=== PATIENT | female | born 1980 | race American Indian/Alaskan Native ===

== ENCOUNTER 2021-07-14 13:02 | Emergency (ER) | payer MEDICAID ==
--- NOTE | 2021-07-14 13:51 | Emergency Department Report ---
ED Dizziness HPI - General Chief Complaint: Dizziness Stated Complaint: DIZZY 11WKS PREG Time Seen by Provider: 07/14/21 13:37 Source: patient Mode of arrival: Ambulatory Limitations: No Limitations - History of Present Illness Initial Comments: 41-year-old female, history of hypertension, currently 11 weeks , presents to ED with dizziness x4 days. Patient states when she stands for too long she feels lightheaded as if she is going to pass out. Patient reports history of hypertension. States she was taking lisinopril, however when she fou nd out that she was she stopped taking her lisinopril. Patient states this was a few weeks ago. She states when she was previously she was taking labetalol. Patient reports associated a mild headache and palpitations. She denies any chest pain, shortness of breath, leg pain or swelling. Patient reports cough, however denies fever. Patient states she received her Pfizer vaccine in December 2020. Patient denies any abdominal pain, vomiting, or vaginal bleeding. MD Complaint: dizziness -: days(s) (4) Timing: intermittent Description: lightheadedness Worsens With: other (Standing for prolonged amount of time) Associated Symptoms: cough. denies: chest pain, confusion, fever/chills, shortness of breath, syncope - Related Data Previous Rx's Medication Instructions Recorded Last Taken Type cephALEXin [Keflex] 500 mg PO Q12HR 5 Days #10 cap 07/14/21 Unknown Rx labetaloL [Labetalol 200mg TAB] 200 mg PO BID 30 Days #60 tablet 07/14/21 Unknown Rx Allergies Allergy/AdvReac Type Severity Reaction Status Date / Time No Known Allergies Allergy Verified 07/14/21 13:37 ED Review of Systems ROS: Stated complaint: DIZZY 11WKS PREG Other details as noted in HPI Comment: All other systems reviewed and negative Constitutional: denies: chills, fever Respiratory: cough. denies: shortness of breath Cardiovascular: palpitations. denies: chest pain Gastrointestinal: denies: abdominal pain, nausea, vomiting Genitourinary: other (Denies vaginal bleeding) Neurological: headache ED Past Medical Hx - Past Medical History Previous Medical History?: Yes Hx Hypertension: Yes - Medications Home Medications: Home Medications Medication Instructions Recorded Confirmed Last Taken Type cephALEXin [Keflex] 500 mg PO Q12HR 5 Days #10 cap 07/14/21 Unknown Rx labetaloL [Labetalol 200mg TAB] 200 mg PO BID 30 Days #60 tablet 07/14/21 Unknown Rx ED Physical Exam - General Limitations: No Limitations General appearance: alert, in no apparent distress - Head Head exam: Present: atraumatic, normocephalic - Eye Eye exam: Present: normal appearance, PERRL, EOMI - ENT ENT exam: Present: mucous membranes moist - Neck Neck exam: Present: normal inspection - Respiratory Respiratory exam: Present: normal lung sounds bilaterally. Absent: respiratory distress - Cardiovascular Cardiovascular Exam: Present: regular rate, normal rhythm - GI/Abdominal GI/Abdominal exam: Present: soft. Absent: distended, tenderness - Extremities Exam Extremities exam: Present: normal inspection. Absent: pedal edema, calf tenderness - Neurological Exam Neurological exam: Present: alert, oriented X3, CN II-XII intact. Absent: motor sensory deficit - Psychiatric Psychiatric exam: Present: normal affect, normal mood - Skin Skin exam: Present: warm, dry, intact, normal color ED Course Vital Signs 07/14/21 07/14/21 07/14/21 13:36 16:07 16:08 Temperature 99.8 F H 97.9 F Pulse Rate 87 73 Respiratory 16 14 Rate Blood Pressure 201/123 153/88 [Right] O2 Sat by Pulse 100 99 99 Oximetry ED Medical Decision Making - Lab Data Result diagrams: 07/14/21 13:54 07/14/21 13:54 - EKG Data -: EKG Interpreted by La EKG shows normal: sinus rhythm, axis, intervals, QRS complexes, ST-T waves Rate: normal - EKG Data Interpretation: no acute changes - Radiology Data Radiology results: report reviewed, image reviewed - Medical Decision Making Labetalol given, blood pressure improved. Patient reports she is feeling much better. She will be given a prescription for labetalol. Ultrasound not ordered as patient is not having any vaginal bleeding or abdominal pain. She can follow-up with [facility] for her . Labs unremarkable except for possible UTI on UA. Patient will be given prescription for this. Critical care attestation.: If time is entered above; I have spent that time in minutes in the direct care of this critically ill patient, excluding procedure time. ED Disposition Clinical Impression: Uncontrolled hypertension, Dizziness, First trimester , UTI (urinary tract infection) Disposition: HOME / SELF CARE / HOMELESS Is pt being admited?: No Condition: Stable Instructions: and Urinary Tract Infection, Hypertension During , Hypertension (ED) Prescriptions: cephALEXin [Keflex] 500 mg PO Q12HR 5 Days #10 cap labetaloL [Labetalol 200mg TAB] 200 mg PO BID 30 Days #60 tablet Referrals: PRIMARY CAREMD [Primary Care Provider] - 3-5 Days JAMI MCCARTHY JR, MD [Staff Physician] - 3-5 Days Time of Disposition: 16:44
--- NOTE | 2021-07-14 14:15 | XRay Report ---
CHEST 2 VIEWS INDICATION: cough. COMPARISON: None. FINDINGS: Support devices: None. Heart: Within normal limits. Lungs/Pleura: No acute air space or interstitial disease. No significant pleural effusion. IMPRESSION: No acute findings. Signer Name: Jean Chávez MD Signed: 07/14/2021 2:11 PM Workstation Name: [id number]
[2021-07-14 14:20] LABS: Basophils % (Auto) 0.4 % (0.0-1.8); Eosinophils # (Auto) 0.1 K/mm3 (0.0-0.4); Eosinophils % (Auto) 1.7 % (0.0-4.3); Hematocrit 39.6 % (30.3-42.9); Hemoglobin 13.7 gm/dl (10.1-14.3); Lymphocytes # (Auto) 1.9 K/mm3 (1.2-5.4); Lymphocytes % (Auto) 27.2 % (13.4-35.0); Mean Corpuscular HGB Conc 35 % (30-34); Mean Corpuscular Volume 86 fl (79-97); Monocytes # (Auto) 0.7 K/mm3 (0.0-0.8); Monocytes % (Auto) 9.5 % (0.0-7.3); Platelet Count 303 K/mm3 (140-440); Red Blood Count 4.62 M/mm3 (3.65-5.03); Red Cell Distribution Width 15.8 % (13.2-15.2)
[2021-07-14 14:35] LABS: Blood Urea Nitrogen 8 mg/dL (7-17); Calcium 8.7 mg/dL (8.4-10.2); Hemolysis Index 5
[2021-07-14 14:38] LABS: BUN/Creatinine Ratio 11
[2021-07-14 16:08] VITALS: BP 153/88
--- NOTE | 2021-07-14 16:08 | Cat Scan Report ---
CT head/brain wo con INDICATION: dizziness, headache. TECHNIQUE: All CT scans at this location are performed using CT dose reduction for ALARA by means of automated e xposure control. COMPARISON: None available. FINDINGS: There is no evidence of hemorrhage, hydrocephalus, brain edema, or mass effect/mass lesion. There is overall normal brain formation and brain volume for the patient's age. Ventricular and cisternal/sulc al size is normal for age. The included paranasal sinuses and mastoid air cells are clear. The orbits appear unremarkable. IMPRESSION: 1. No acute intracranial abnormality. Signer Name: Bob Howell MD Signed: 07/14/2021 4:04 PM Workstation Name: [id number]
[2021-07-14 16:19] LABS: Bacteria,Urine 1+ /HPF (Negative); Bilirubin,Urine NEG (Negative); Blood,Urine NEG (Negative); Color,Urine Yellow (Yellow); Mucus,Urine FEW /HPF; Protein,Urine <15 mg/dL mg/dL (Negative); Urobilinogen,Urine < 2.0 mg/dL (<2.0)
--- NOTE | 2021-07-15 10:36 | Electrocardiograph Report ---
[facility] Test Date: 2021-07-14 Test Time: 14:40:08 Pat Name: JANUARY FAIR HAVEN Department: Room: Gender: F Customer Services Coordinator: LAYLA : 1980 Requested By: SHANA BUTTS Order Number: [id number] Reading MD: Micah Duff Measurements Intervals [place] Rate: 80 P: 68 RI: 141 QRS: 62 QRSD: 84 T: 35 QT: 369 QTc: 424 Interpretive Statements Sinus rhythm Probable left atrial enlargement ST elev, probable normal early repol pattern No previous ECG available for comparison Electronically Signed On 07-15-2021 10:35:56 EDT by Micah Duff
== END 2021-07-14 17:01 | disposition home or self-care (01) ==
LOC: ED 13:02
DX: O26.891 Other specified pregnancy related conditions, first trimester (principal); I10 Essential (primary) hypertension; O23.41 Unspecified infection of urinary tract in pregnancy, first trimester; Z3A.11 11 weeks gestation of pregnancy; Z79.899 Other long term (current) drug therapy
CPT/HCPCS: 36415; 70450; 71046; 80048; 81001; 84702; 85025; 87086; 93005; 96374; 99284

== ENCOUNTER 2021-07-24 10:43 | Emergency (ER) | payer OTHER ==
[2021-07-24 10:51] VITALS: BP 149/86
--- NOTE | 2021-07-24 11:05 | Emergency Department Report ---
ED Female HPI - General Chief complaint: Vaginal Bleeding Stated complaint: 12WKS CRAMPING BLEEDING Time Seen by Provider: 07/24/21 10:55 Source: patient Mode of arrival: Ambulatory Limitations: No Limitations - History of Present Illness Initial comments: Complaint: "I am nervous. I am ." HPI: Is a 41-year-old female with history of hypertension G4, P3 who is approximately 12 weeks 4 days . Estimated due date February 01, 2022. Patient had first care appointment at clinic. She recently established health insurance. She is looking for an diesel mechanic farm. Today she started cramping with vaginal spotting with wiping. Intermittent mild pelvic cramps. 4 out of 10 in severity. No radiation. During her recent care clinic her antihypertensive medication was changed from lisinopril to labetalol. Complaint: vaginal bleeding, pelvic pain -: Gradual, This morning Severity: mild Severity scale (0 -10): 4 Quality: cramping Consistency: intermittent Improves with: none Worsens with: none Are you Now?: Yes Associated Symptoms: vaginal bleeding - Related Data Previous Rx's Medication Instructions Recorded Last Taken Type cephALEXin [Keflex] 500 mg PO Q12HR 5 Days #10 cap 07/14/21 Unknown Rx labetaloL [Labetalol 200mg TAB] 200 mg PO BID 30 Days #60 tablet 07/14/21 Unknown Rx Allergies Allergy/AdvReac Type Severity Reaction Status Date / Time No Known Allergies Allergy Verified 07/24/21 10:45 ED Review of Systems ROS: Stated complaint: 12WKS CRAMPING BLEEDING Other details as noted in HPI Comment: All other systems reviewed and negative Constitutional: diaphoresis. denies: chills, fever, malaise Respiratory: denies: cough, shortness of breath Cardiovascular: denies: chest pain Gastrointestinal: abdominal pain ED Past Medical Hx - Past Medical History Previous Medical History?: Yes Hx Hypertension: Yes - Surgical History Past Surgical History?: Yes Additional Surgical History: - Social History Smoking Status: Never Smoker Substance Use Type: None - Medications Home Medications: Home Medications Medication Instructions Recorded Confirmed Last Taken Type cephALEXin [Keflex] 500 mg PO Q12HR 5 Days #10 cap 07/14/21 Unknown Rx labetaloL [Labetalol 200mg TAB] 200 mg PO BID 30 Days #60 tablet 07/14/21 Unknown Rx ED Physical Exam - General Limitations: No Limitations General appearance: alert, in no apparent distress - Head Head exam: Present: atraumatic, normocephalic - Eye Eye exam: Present: normal appearance - ENT ENT exam: Present: mucous membranes moist - Neck Neck exam: Present: normal inspection, full ROM - Respiratory Respiratory exam: Present: normal lung sounds bilaterally. Absent: respiratory distress, wheezes, rales, rhonchi - Cardiovascular Cardiovascular Exam: Present: regular rate, normal rhythm, normal heart sounds. Absent: systolic murmur, diastolic murmur, rubs, gallop - GI/Abdominal GI/Abdominal exam: Present: soft, normal bowel sounds. Absent: distended, tenderness, guarding, rebound - Extremities Exam Extremities exam: Present: normal inspection - Neurological Exam Neurological exam: Present: alert, oriented X3 - Psychiatric Psychiatric exam: Present: normal affect, normal mood - Skin Skin exam: Present: warm, dry, intact, normal color. Absent: rash ED Course Vital Signs 07/24/21 10:49 Temperature 98.6 F Pulse Rate 103 H Respiratory 20 Rate Blood Pressure 149/86 O2 Sat by Pulse 99 Oximetry ED Medical Decision Making - Lab Data Result diagrams: 07/24/21 11:04 07/24/21 11:04 - Radiology Data Radiology results: report reviewed Patient Name: VOLODYMYR BOLTON Gender: Female Date of : 1980 Referring Provider: MARSHA EDGE Organization: [facility] Accession Number: [id number] Requested Date: July 24, 2021 11:00 Report Status: Final Requested Procedure: 1 Procedure Description: US OB <= 14 weeks fetus Modality: US Findings Reporting MD: Skinny oBo Dictation Time: July 24, 2021 12:27 Chain Maker Machine: Not available Home Economist Consumer Service Date: ULTRASOUND OBSTETRIC INDICATION / CLINICAL INFORMATION: pelvic pain vaginal bleeding. Clinical Gestational Age (GA) in weeks, days: 12, 3 TECHNIQUE: Transabdominal and Transvaginal. COMPARISON: None available. FINDINGS: GESTATIONAL SAC: Well-defined oval shape and intrauterine in location. YOLK SAC: Not seen EMBRYO/FETUS: No significant abnormality. - [place]-Rump Length = 4.7 cm = 11, 3 weeks, days - Heart Rate, beats per minute (if present) = 180 There is a small amount of complex fluid in the lower uterine segment and cervix. ADNEXA: There is a 1.9 cm complex cyst in the left ovary FREE FLUID: None. ADDITIONAL FINDINGS: None. IMPRESSION: 1. Single, living intrauterine with estimated sonographic age of 11, 3 weeks, days. 2. There is a small amount of complex fluid in the lower - Medical Decision Making Threatened miscarriage: Blood type O+. Referred to diesel mechanic farm on-call. Patient given pelvic rest instruction. Mrs. Bolton was quite nervous and anxious. She is concerned for miscarriage since she is considered high risk. I gave verbal reassurance. I encouraged her to focus on her health. Critical care attestation.: If time is entered above; I have spent that time in minutes in the direct care of this critically ill patient, excluding procedure time. ED Disposition Clinical Impression: Threatened miscarriage Disposition: 01 HOME / SELF CARE / HOMELESS Is pt being admited?: No Does the pt Need Aspirin: No Condition: Stable Instructions: Threatened Miscarriage Referrals: CHRISTIANO MITCHELL MD [Staff Physician] - 3-5 Days
[2021-07-24 11:36] LABS: Blood Urea Nitrogen 7 mg/dL (7-17); Calcium 8.7 mg/dL (8.4-10.2); Hemolysis Index 5
[2021-07-24 11:44] LABS: Basophils # (Auto) 0.1 K/mm3 (0.0-0.1); Basophils % (Auto) 0.8 % (0.0-1.8); Eosinophils # (Auto) 0.1 K/mm3 (0.0-0.4); Eosinophils % (Auto) 1.5 % (0.0-4.3); Hematocrit 37.4 % (30.3-42.9); Lymphocytes # (Auto) 1.5 K/mm3 (1.2-5.4); Lymphocytes % (Auto) 18.5 % (13.4-35.0); Mean Corpuscular HGB Conc 32 % (30-34); Mean Corpuscular Volume 86 fl (79-97); Monocytes # (Auto) 0.4 K/mm3 (0.0-0.8); Monocytes % (Auto) 5.2 % (0.0-7.3); Platelet Count 346 K/mm3 (140-440); Red Blood Count 4.36 M/mm3 (3.65-5.03); Red Cell Distribution Width 15.9 % (13.2-15.2)
[2021-07-24 12:00] LABS: BUN/Creatinine Ratio 10
--- NOTE | 2021-07-24 13:32 | Ultrasound Report ---
ULTRASOUND OBSTETRIC INDICATION / CLINICAL INFORMATION: pelvic pain vaginal bleeding. Clinical Gestational Age (GA) in weeks, days: 12, 3 TECHNIQUE: Transabdominal and Transvaginal. COMPARISON: None available. FINDINGS: GESTATIONAL SAC: Well-defined oval shape and intrauterine in location. YOLK SAC: Not seen EMBRYO/FETUS: No significant abnormality. - [place]-Rump Length = 4.7 cm = 11, 3 weeks, days - Heart Rate, beats per minute (if present) = 180 There is a small amount of complex fluid in the lower uterine segment and cervix. ADNEXA: There is a 1.9 cm complex cyst in the left ovary FREE FLUID: None. ADDITIONAL FINDINGS: None. IMPRESSION: 1. Single, living intrauterine with estimated sonographic age of 11, 3 weeks, days. 2. There is a small amount of complex fluid in the lower uterine segment and cervix. Signer Name: Skinny Boo MD Signed: 07/24/2021 1:27 PM Workstation Name: [id number]
--- NOTE | 2021-07-24 13:32 | Ultrasound Report ---
ULTRASOUND OBSTETRIC INDICATION / CLINICAL INFORMATION: pelvic pain vaginal bleeding. Clinical Gestational Age (GA) in weeks, days: 12, 3 TECHNIQUE: Transabdominal and Transvaginal. COMPARISON: None available. FINDINGS: GESTATIONAL SAC: Well-defined oval shape and intrauterine in location. YOLK SAC: Not seen EMBRYO/FETUS: No significant abnormality. - [place]-Rump Length = 4.7 cm = 11, 3 weeks, days - Heart Rate, beats per minute (if present) = 180 There is a small amount of complex fluid in the lower uterine segment and cervix. ADNEXA: There is a 1.9 cm complex cyst in the left ovary FREE FLUID: None. ADDITIONAL FINDINGS: None. IMPRESSION: 1. Single, living intrauterine with estimated sonographic age of 11, 3 weeks, days. 2. There is a small amount of complex fluid in the lower uterine segment and cervix. Signer Name: Skinny Boo MD Signed: 07/24/2021 1:27 PM Workstation Name: [id number]
== END 2021-07-24 14:29 | disposition home or self-care (01) ==
LOC: ED 10:43
DX: O20.0 Threatened abortion (principal); Z3A.12 12 weeks gestation of pregnancy; I10 Essential (primary) hypertension; Z98.890 Other specified postprocedural states
CPT/HCPCS: 36415; 76801; 76817; 80048; 84702; 85025; 86900; 86901; 99283

== ENCOUNTER 2021-08-04 09:19 | Emergency (ER) | payer MEDICAID ==
[2021-08-04] MEDS ORDERED: ACETAMINOPHEN 325 MG TAB PO ONE (11:25)
--- NOTE | 2021-08-04 11:47 | Emergency Department Report ---
ED HPI - General Chief complaint: Vaginal Bleeding Stated complaint: 12WKS/VAGINAL BLEEDING Time Seen by Provider: 08/04/21 11:20 Source: patient Mode of arrival: Ambulatory Limitations: No Limitations - History of Present Illness Initial comments: Patient is a 41-year-old female presents emergency room complaints of suprapubic cramping over the last couple days. she states that she has been having vaginal spotting but this morning and she had an episode when she went to urinate where she had some heavier bleeding. She states that the bleeding has improved. she is not having to wear a menstrual pad. She denies passing any clots. Patient is approximately 12 weeks . She has not followed up with [facility]. She denies any fever, vomiting, diarrhea, dysuria, abnormal discharge. Past medical history of hypertension. No allergies to medications. - Related Data Previous Rx's Medication Instructions Recorded Last Taken Type cephALEXin [Keflex] 500 mg PO Q12HR 5 Days #10 cap 07/14/21 Unknown Rx labetaloL [Labetalol 200mg TAB] 200 mg PO BID 30 Days #60 tablet 07/14/21 Unkn own Rx Allergies Allergy/AdvReac Type Severity Reaction Status Date / Time No Known Allergies Allergy Verified 07/24/21 10:45 ED Review of Systems ROS: Stated complaint: 12WKS/VAGINAL BLEEDING Other details as noted in HPI Comment: All other systems reviewed and negative ED Past Medical Hx - Past Medical History Hx Hypertension: Yes - Surgical History Additional Surgical History: - Social History Smoking Status: Never Smoker Substance Use Type: None - Medications Home Medications: Home Medications Medication Instructions Recorded Confirmed Last Taken Type cephALEXin [Keflex] 500 mg PO Q12HR 5 Days #10 cap 07/14/21 Unknown Rx labetaloL [Labetalol 200mg TAB] 200 mg PO BID 30 Days #60 tablet 07/14/21 Unknown Rx ED Physical Exam - General Limitations: No Limitations General appearance: alert, in no apparent distress - Head Head exam: Present: atraumatic, normocephalic - Eye Eye exam: Present: normal appearance - ENT ENT exam: Present: mucous membranes moist - Respiratory Respiratory exam: Present: normal lung sounds bilaterally. Absent: respiratory distress, wheezes, rales, rhonchi, stridor, chest wall tenderness, accessory muscle use, decreased breath sounds, prolonged expiratory - Cardiovascular Cardiovascular Exam: Present: regular rate, normal rhythm, normal heart sounds. Absent: systolic murmur, diastolic murmur, rubs, gallop - GI/Abdominal GI/Abdominal exam: Present: soft, normal bowel sounds. Absent: distended, tenderness, guarding, rebound, rigid - Neurological Exam Neurological exam: Present: alert, oriented X3 - Psychiatric Psychiatric exam: Present: normal affect, normal mood - Skin Skin exam: Present: warm, dry, intact ED Course Vital Signs 08/04/21 08/04/21 08/04/21 11:17 13:07 14:45 Temperature 99.4 F Pulse Rate 86 83 Respiratory 18 16 18 Rate Blood Pressure 162/97 Blood Pressure 156/84 [Right] O2 Sat by Pulse 99 100 Oximetry ED Medical Decision Making - Lab Data Result diagrams: 08/04/21 11:38 08/04/21 11:38 Lab Results 08/04/21 08/04/21 08/04/21 Range/Units 11:38 11:38 11:38 WBC 8.9 (4.5-11.0) K/mm3 RBC 4.48 (3.65-5.03) M/mm3 Hgb 12.8 (10.1-14.3) gm/dl Hct 38.5 (30.3-42.9) % MCV 86 (79-97) fl MCH 29 (28-32) pg MCHC 33 (30-34) % RDW 15.7 H (13.2-15.2) % Plt Count 329 (140-440) K/mm3 Lymph % (Auto) 22.5 (13.4-35.0) % [place] % (Auto) 10.2 H (0.0-7.3) % Eos % (Auto) 2.8 (0.0-4.3) % Baso % (Auto) 0.7 (0.0-1.8) % Lymph # (Auto) 2.0 (1.2-5.4) K/mm3 [place] # (Auto) 0.9 H (0.0-0.8) K/mm3 Eos # (Auto) 0.2 (0.0-0.4) K/mm3 Baso # (Auto) 0.1 (0.0-0.1) K/mm3 Seg Neutrophils % 63.8 (40.0-70.0) % Seg Neutrophils # 5.7 (1.8-7.7) K/mm3 Sodium 137 (137-145) mmol/L Potassium 4.1 (3.6-5.0) mmol/L Chloride 103.6 (98-107) mmol/L Carbon Dioxide 24 (22-30) mmol/L Anion Gap 14 mmol/L BUN 8 (7-17) mg/dL Creatinine 0.6 (0.6-1.2) mg/dL Estimated GFR > 60 ml/min BUN/Creatinine Ratio 13 % Glucose 70 (65-100) mg/dL Calcium 8.9 (8.4-10.2) mg/dL Total Bilirubin 0.20 (0.1-1.2) mg/dL AST 20 (5-40) units/L ALT 39 (7-56) units/L Alkaline Phosphatase 57 (35-129) units/L Total Protein 7.9 (6.3-8.2) g/dL Albumin 3.6 L (3.9-5) g/dL Albumin/Globulin Ratio 0.8 % HCG, Quant 70688 H (0-4) mIU/mL Vital Signs 08/04/21 08/04/21 08/04/21 11:17 13:07 14:45 Temperature 99.4 F Pulse Rate 86 83 Respiratory 18 16 18 Rate Blood Pressure 162/97 Blood Pressure 156/84 [Right] O2 Sat by Pulse 99 100 Oximetry - Radiology Data Radiology results: report reviewed Ordering Physician: JEFFREY NORIEGA Date of Service: 08/04/21 Procedure(s): US OB <= 14 weeks fetus Accession Number(s): [id number] cc: JEFFREY NORIEGA OBSTETRICAL ULTRASOUND FIRST TRIMESTER HISTORY: Vaginal bleeding. A single viable intrauterine is dated 12 weeks 6 days by ultrasound. heart tones are 173 bpm. Placenta is located at the fundus. A subchorionic hemorrhage is present measuring 2.6 x 1.9 x 2.7 cm. The ovaries are normal in appearance. No adnexal abnormality. IMPRESSION: 1. Single viable intrauterine dated 12 weeks 6 days by ultrasound. 2. Subchorionic hemorrhage. Signer Name: Jean Chávez MD Signed: 08/04/2021 1:58 PM Workstation Name: [id number] Transcribed By: DARNELL Dictated By: Jean Cáhvez MD Electronically Authenticated By: Jean Chávez MD Signed Date/Time: 08/04/211 DD/ 55 TD/TT: Print Cancel - Medical Decision Making Patient is a 41-year-old female presents emergency room complaints of suprapubic cramping over the last couple days. she states that she has been having vaginal spotting but this morning and she had an episode when she went to urinate where she had some heavier bleeding. She states that the bleeding has improved. she is not having to wear a menstrual pad. She denies passing any clots. Patient is approximately 12 weeks . She has not followed up with [facility]. She denies any fever, vomiting, diarrhea, dysuria, abnormal discharge. Past medical history of hypertension. No allergies to medications. No abdominal tenderness on exam. Labs are normal. hCG quant has increased from previous. Patient is Rh+ from previous labs. OB ultrasound: 1. Single viable intrauterine dated 12 weeks 6 days by ultrasound. 2. Subchorionic hemorrhage. Discussed all results with patient answer questions. Discussed the importance of close [facility] follow-up for monitoring and care. Advised patient May take Tylenol as needed for any cramping. Increase your water intake. Follow-up with [facility]. You need close [facility] follow-up. Please take a vitamin [id number]. Practice pelvic rest. Return to emergency room for any new or worsening symptoms. Critical care attestation.: If time is entered above; I have spent that time in minutes in the direct care of this critically ill patient, excluding procedure time. ED Disposition Clinical Impression: Threatened miscarriage Subchorionic hematoma Qualifiers: Fetus number: single or unspecified fetus Trimester: second trimester Qualified Code(s): O41.8X20 - Other specified disorders of amniotic fluid and membranes, second trimester, not applicable or unspecified Disposition: 01 HOME / SELF CARE / HOMELESS Is pt being admited?: No Does the pt Need Aspirin: No Condition: Stable Instructions: Threatened Miscarriage, Subchorionic Hematoma Additional Instructions: May take Tylenol as needed for any cramping. Increase your water intake. Follow-up with [facility]. You need close [facility] [facility] follow-up. Please take a vitamin [id number]. Practice pelvic rest. Return to emergency room for any new or worsening symptoms. Referrals: PRIMARY CARE, [Primary Care Provider] - 3-5 Days [facility] [Provider Group] - 3-5 Days [facility] [Provider Group] - 3-5 Days [facility] [Provider Group] - 3-5 Days Time of Disposition: 14:16 Print Language: SLOVAK
[2021-08-04 12:14] LABS: Basophils # (Auto) 0.1 K/mm3 (0.0-0.1); Basophils % (Auto) 0.7 % (0.0-1.8); Eosinophils # (Auto) 0.2 K/mm3 (0.0-0.4); Eosinophils % (Auto) 2.8 % (0.0-4.3); Hematocrit 38.5 % (30.3-42.9); Hemoglobin 12.8 gm/dl (10.1-14.3); Lymphocytes % (Auto) 22.5 % (13.4-35.0); Mean Corpuscular HGB Conc 33 % (30-34); Mean Corpuscular Volume 86 fl (79-97); Monocytes # (Auto) 0.9 K/mm3 (0.0-0.8); Monocytes % (Auto) 10.2 % (0.0-7.3); Platelet Count 329 K/mm3 (140-440); Red Blood Count 4.48 M/mm3 (3.65-5.03); Red Cell Distribution Width 15.7 % (13.2-15.2)
[2021-08-04 12:47] LABS: Alanine Aminotransferase 39 units/L (7-56); Albumin 3.6 g/dL (3.9-5); Blood Urea Nitrogen 8 mg/dL (7-17); Calcium 8.9 mg/dL (8.4-10.2); Hemolysis Index 12
[2021-08-04 12:53] LABS: BUN/Creatinine Ratio 13
--- NOTE | 2021-08-04 14:02 | Ultrasound Report ---
OBSTETRICAL ULTRASOUND FIRST TRIMESTER HISTORY: Vaginal bleeding. A single viable intrauterine is dated 12 weeks 6 days by ultraso und. heart tones are 173 bpm. Placenta is located at the fundus. A subchorionic hemorrhage is present measuring 2.6 x 1.9 x 2.7 cm. The ovaries are normal in appearance. No adnexal abnormality. IMPRESSION: 1. Single viable intrauterine dated 12 weeks 6 days by ultrasound. 2. Subchorionic hemorrhage. Signer Name: Jean Chávez MD Signed: 08/04/2021 1:58 PM Workstation Name: [id number]
[2021-08-04 14:46] VITALS: BP 156/84
== END 2021-08-04 14:46 | disposition home or self-care (01) ==
LOC: ED 09:19
DX: O20.0 Threatened abortion (principal); O41.8X20 Other specified disorders of amniotic fluid and membranes, second trimester, not applicable or unspecified; Z3A.12 12 weeks gestation of pregnancy
CPT/HCPCS: 36415; 76801; 80053; 84702; 85025